=== PATIENT | male | born 1960 | race Caucasian/White ===

== ENCOUNTER 2017-04-18 09:45 | Emergency (ER) | payer OTHER ==
--- NOTE | 2017-04-18 09:58 | CPEKG ---
Heart Rate: 53 RR Interval: 1132 P-R Interval: 192 QRSD Interval: 110 QT Interval: 432 QTC Interval: 406 P [place]: 60 QRS [place]: 24 T Wave [place]: 21 EKG Severity - ABNORMAL ECG - EKG Impression: SINUS RHYTHM EKG Impression: NONSPECIFIC INTRAVENTRICULAR CONDUCTION DELAY Electronically Signed By: Bertha Wagoner 18-Apr-2017 15:26:40
[2017-04-18] MEDS ORDERED: ASPIRIN 325 MG TAB PO ONE (10:02)
[2017-04-18 10:09] LABS: % IMMATURE GRANULYOCYTES 0.2 % (0.0-1.1); ABSOLUTE IMMATURE GRANULOCYTES 0.01 10^3/uL (0.00-0.10); ADD DIFF? NO; ADD MORPH? NO; ADD SCAN? NO; ATYPICAL LYMPHOCYTE FLAG 20 (0-99); FRAGMENT RBC FLAG 0 (0-99); HEMATOCRIT 48.1 % (40.0-51.0); HEMOGLOBIN 16.8 g/dL (13.7-17.5); LEFT SHIFT FLG 0 (0-99); LIPEMIA HEMOLYSIS FLAG 90 (0-99); MEAN CELL HEMOGLOBIN 30.9 pg (27.9-34.1); MEAN CELL HEMOGLOBIN CONCENTR. 34.9 g/dL (32.4-36.7); MEAN CELL VOLUME 88.4 fL (81.5-99.8); MEAN PLATELET VOLUME 10.3 fL (8.7-11.7); PLATELET CLUMPS FLAG 20 (0-99); PLATELET COUNT 172 10^3/uL (150-400); RED BLOOD CELL COUNT 5.44 10^6/uL (4.40-6.38)
[2017-04-18] MEDS ORDERED: LIDOCAINE 2% VISCOUS 15 ML UDCUP PO ONE (10:18)
[2017-04-18] MEDS ORDERED: MAG HYDROX/AL HYDROX/SIMETH 30 ML UDCUP PO ONE (10:18)
--- NOTE | 2017-04-18 10:23 | EDPHY ---
H & P Time Seen by Provider: 04/18/17 09:52 HPI/ROS: CHIEF COMPLAINT: Chest pain HISTORY OF PRESENT ILLNESS: Patient is a 57-year-old male with a history of DVT who presents to the emergency department with left-sided chest pain since yesterday. The patient went on to our bike ride which is typical and then went to lunch. After eating lunch she developed left-sided chest pain. It does not radiate. It is not pleuritic. He had multiple episodes of belching. He felt that he was having reflux. He has had a history of H pylori in the past. Patient has had mild shortness of breath. No cough or fever. No leg pain or swelling. Patient wears compression stockings regularly. no recent travel REVIEW OF SYSTEMS: My complete review of systems is negative except as mentioned in the HPI. Past Medical/Surgical History: Includes Cardoso cyst, DVT, thrombophlebitis, H pylori Past surgical history: Knee surgery Social history: The patient smokes tobacco. He drinks daily. Smoking Status: Current some day smoker Physical Exam: Vitals noted GENERAL: Well-appearing, in no acute distress, alert. HEENT: Eyes normal to inspection, normal pharynx, no signs of dehydration. NECK: No thyromegaly, no lymphadenopathy, supple. RESPIRATORY: Clear to auscultation bilaterally, no rales, rhonchi or wheezing. CVS: Regular rate and rhythm, no rubs, murmurs, or gallops. Chest wall: No tenderness palpation. ABDOMEN: Soft, nontender, nondistended, no organomegaly. BACK: Normal to inspection, no CVA tenderness. SKIN: Normal color, no rash, warm, dry. No pallor. EXTREMITIES: No pedal edema, no calf tenderness, no Homans sign or cords, no joint swelling. NEURO/PSYCH: Alert and oriented x3, normal mood and affect, normal motor sensory exam. Constitutional: Initial Vital Signs Temperature (C) 36.4 C 04/18/17 09:47 Heart Rate 59 L 04/18/17 09:47 Respiratory Rate 20 04/18/17 09:47 Blood Pressure 120/91 H 04/18/17 09:47 O2 Sat (%) 95 04/18/17 09:47 O2 Delivery Mode Room Air O2 (L/minute) 2 Allergies/Adverse Reactions: No Known Allergies Allergy (Verified 04/18/17 09:46) Home Medications: Medication Instructions Recorded NK [No Known Home Meds] 04/18/17 Medical Decision Making - Diagnostics Imaging Results: Imaging Impressions Chest X-Ray 04/18/17 10:03 Impression: No acute pulmonary disease. ED Course/Re-evaluation: In the emergency department I discussed possible etiologies with the patient. I answered all his questions. I reviewed the patient's EKG from Dr. Jameson office. Patient was given aspirin and GI cocktail. Laboratory studies, EKG and chest x-ray were ordered. EKG shows normal sinus rhythm, normal rate, normal axis, normal intervals (QRS 110). Poor R-wave progression. There are no ST or T-wave abnormalities. Patient's laboratory studies were unremarkable. Troponin D-dimer negative. Chest x-ray: No acute disease noted. I rechecked the patient and discussed his results. He had no new complaints. 1155: I discussed the case with Dr. Jameson. He feels comfortable with patient being discharged. He will arrange close follow-up. He also requested I give the patient follow-up information with Cardiology. Patient will return with worsening symptoms. Differential Diagnosis: My differential includes but is not limited to ACS, acute ME, pulmonary embolus , dissection, aneurysm, myocarditis, pericarditis, pleurisy, pneumonia, pneumothorax, mass, malignancy - Data Points Laboratory Results: Laboratory Results 04/18/17 10:00 04/18/17 10:00 04/18/17 04/18/17 04/18/17 Unknown 10:00 10:00 WBC 4.66 10^3/uL 10^3/uL (3.80-9.50) RBC 5.44 10^6/uL 10^6/uL (4.40-6.38) Hgb 16.8 g/dL g/dL (13.7-17.5) Hct 48.1 % % (40.0-51.0) MCV 88.4 fL fL (81.5-99.8) MCH 30.9 pg pg (27.9-34.1) MCHC 34.9 g/dL g/dL (32.4-36.7) RDW 13.0 % % (11.5-15.2) Plt Count 172 10^3/uL 10^3/uL (150-400) MPV 10.3 fL fL (8.7-11.7) Neut % (Auto) 62.4 % % (39.3-74.2) Lymph % (Auto) 25.1 % % (15.0-45.0) [place] % (Auto) 8.6 % % (4.5-13.0) Eos % (Auto) 2.8 % % (0.6-7.6) Baso % (Auto) 0.9 % % (0.3-1.7) Nucleat RBC Rel Count 0.0 % % (0.0-0.2) Absolute Neuts (auto) 2.91 10^3/uL 10^3/uL (1.70-6.50) Absolute Lymphs (auto) 1.17 10^3/uL 10^3/uL (1.00-3.00) Absolute Monos (auto) 0.40 10^3/uL 10^3/uL (0.30-0.80) Absolute Eos (auto) 0.13 10^3/uL 10^3/uL (0.03-0.40) Absolute Basos (auto) 0.04 10^3/uL 10^3/uL (0.02-0.10) Absolute Nucleated RBC 0.00 10^3/uL 10^3/uL (0-0.01) Immature Gran % 0.2 % % (0.0-1.1) Immature Gran # 0.01 10^3/uL 10^3/uL (0.00-0.10) D-Dimer < 0.27 ug/mLFEU ug/mLFEU (0.00-0.50) Sodium 142 mEq/L mEq/L (134-144) Potassium 4.3 mEq/L mEq/L (3.5-5.2) Chloride 106 mEq/L mEq/L (97-110) Carbon Dioxide 22 mEq/l mEq/l (22-31) Anion Gap 14 mEq/L mEq/L (8-16) BUN 17 mg/dL mg/dL (7-23) Creatinine 1.0 mg/dL mg/dL (0.7-1.3) Estimated GFR > 60 Glucose 111 mg/dL H mg/dL (70-100) Calcium 10.3 mg/dL mg/dL (8.5-10.4) Total Bilirubin 1.2 mg/dL mg/dL (0.1-1.4) Conjugated Bilirubin 0.2 mg/dL mg/dL (0.0-0.5) Unconjugated Bilirubin 1.0 mg/dL mg/dL (0.0-1.1) AST 37 IU/L IU/L (17-59) ALT 47 IU/L IU/L (21-72) Alkaline Phosphatase 51 IU/L IU/L (38-126) Troponin I < 0.012 ng/mL ng/mL (0.000-0.034) Total Protein 8.0 g/dL g/dL (6.3-8.2) Albumin 4.7 g/dL g/dL (3.5-5.0) Lipase 49 IU/L IU/L (23-300) Medications Given: Discontinued Medications Al Hydroxide/Mg Hydroxide (Maalox Susp) 30 ml PO ONCE ONE Stop: 04/18/17 10:19 Last Admin: 04/18/17 10:43 Dose: 30 ml Aspirin (Aspirin) 324 mg PO EDNOW ONE Stop: 04/18/17 10:03 Last Admin: 04/18/17 10:07 Dose: 324 mg Lidocaine (Lidocaine 2% Viscous) 15 ml PO ONCE ONE Stop: 04/18/17 10:19 Last Admin: 04/18/17 10:43 Dose: 15 ml Departure - Departure Disposition: Home, Routine, Self-Care Clinical Impression: Chest pain Qualifiers: Chest pain type: precordial pain Qualified Code(s): R07.2 - Precordial pain Condition: Good Instructions: Chest Pain (ED) Additional Instructions: Return with increasing chest pain, shortness of breath, or any other concerns. You need close follow-up appoint with Dr. Jameson on Tuesday. You should also make a follow-up appoint with Cardiology. Referrals: Xavier Lang MD [Medical Doctor] - 2-3 days without fail Sanford Jameson MD [Primary Care Provider] - 2-3 days without fail
[2017-04-18 10:46] VITALS: PULSE 53; RESP 16
[2017-04-18 11:09] LABS: ALANINE AMINOTRANSFERASE 47 IU/L (21-72); ALBUMIN 4.7 g/dL (3.5-5.0); ALKALINE PHOSPHATASE 51 IU/L (38-126); ASPARTATE AMINOTRANSFERASE 37 IU/L (17-59); BILIRUBIN,TOTAL 1.2 mg/dL (0.1-1.4); BILIRUBIN-CONJUGATED 0.2 mg/dL (0.0-0.5); GLOMERULAR FILTRATION RATE > 60
[2017-04-18 11:13] LABS: ANION GAP 14 mEq/L (8-16); CARBON DIOXIDE 22 mEq/l (22-31); CHLORIDE 106 mEq/L (97-110); GLUCOSE 111 mg/dL (70-100); POTASSIUM 4.3 mEq/L (3.5-5.2); SODIUM 142 mEq/L (134-144); TROPONIN I < 0.012 ng/mL (0.000-0.034)
[2017-04-18 11:14] LABS: CALCIUM 10.3 mg/dL (8.5-10.4)
[2017-04-18 12:26] VITALS: BP 129/81; TEMP 97.9; O2SAT 99
== END 2017-04-18 12:26 | disposition home or self-care (01) ==
DX: R07.2 Precordial pain (principal); F17.200 Nicotine dependence, unspecified, uncomplicated

== ENCOUNTER 2017-11-09 14:33 | Emergency (ER) | payer OTHER ==
[2017-11-09 14:36] VITALS: TEMP 97.3
--- NOTE | 2017-11-09 14:46 | CPEKG ---
Heart Rate: 69 RR Interval: 870 P-R Interval: 188 QRSD Interval: 110 QT Interval: 412 QTC Interval: 442 P [place]: 71 QRS [place]: 50 T Wave [place]: 54 EKG Severity - ABNORMAL ECG - EKG Impression: SINUS RHYTHM EKG Impression: NONSPECIFIC INTRAVENTRICULAR CONDUCTION DELAY Electronically Signed By: Bertha Wagoner 09-Nov-2017 20:58:21
[2017-11-09] MEDS ORDERED: NS 1,000 ML IV ONE ×2 (15:00→15:09)
[2017-11-09] MEDS ORDERED: ASPIRIN 81 MG CHEWABLE TAB PO ONE (15:09)
--- NOTE | 2017-11-09 15:13 | EDPHY ---
H & P Time Seen by Provider: 11/09/17 14:47 HPI/ROS: CHIEF COMPLAINT: Lightheadedness HISTORY OF PRESENT ILLNESS: Patient is a 49-year-old male who presents emergency department after having episode of lightheadedness. Patient states that he went on a hard bike ride for about 2 hr earlier today. He normally rides his bike 3 to 4 times a week. This was a particularly difficult ride. He returned home was feeling well. He had something to eat. He was walking up the stairs when he began to feel lightheaded. He placed his heart rate monitor and his heart was elevated at 104. He denies palpitations. He had no chest pain. No shortness of breath. No diaphoresis. No focal weakness or numbness. No visual change. REVIEW OF SYSTEMS: My complete review of systems is negative except as mentioned in the HPI. Past Medical/Surgical History: Includes DVT Past surgical history: Noncontributory Social history: Patient does not smoke. Patient does drink alcohol. The patient is retired teacher. Smoking Status: Former smoker Physical Exam: 36.3, 148/95, 74, 19, 95% on room air GENERAL: Well-appearing, in no acute distress, alert. HEENT: Eyes normal to inspection, normal pharynx, no signs of dehydration. NECK: No thyromegaly, no lymphadenopathy, supple. RESPIRATORY: Clear to auscultation bilaterally, no rales, rhonchi or wheezing. CVS: Regular rate and rhythm, no rubs, murmurs, or gallops. ABDOMEN: Soft, nontender, nondistended, no organomegaly. BACK: Normal to inspection, no CVA tenderness. SKIN: Normal color, no rash, warm, dry. No pallor. EXTREMITIES: No pedal edema, no calf tenderness, no Homans sign or cords, no joint swelling. NEURO/PSYCH: Higher functions: Alert and Oriented x3. Normal speech and cognition. Normal mood and affect. Cranial nerves: Normal as tested. Cerebellar: Normal as tested. Good finger to nose, good [id number], normal gait. Peripheral exam: Normal motor exam. Normal sensation. Normal reflexes. Constitutional: Initial Vital Signs Temperature (C) 36.3 C 11/09/17 14:34 Heart Rate 74 11/09/17 14:34 Respiratory Rate 19 11/09/17 14:34 Blood Pressure 148/95 H 11/09/17 14:34 O2 Sat (%) 95 11/09/17 14:34 O2 Delivery Mode Room Air Allergies/Adverse Reactions: No Known Allergies Allergy (Verified 11/09/17 14:34) Home Medications: Medication Instructions Recorded NK [No Known Home Meds] 04/18/17 Medical Decision Making - Diagnostics Imaging Results: Imaging Impressions Chest X-Ray 11/09/17 15:10 Impression: Stable negative chest.. ED Course/Re-evaluation: In the emergency department I met the patient on arrival. I discussed possible etiologies. I answered all his questions. IV was placed. Laboratory studies, EKG and chest x-ray were ordered. The patient was given aspirin 324 mg orally. EKG shows normal sinus rhythm, normal rate, normal axis, nonspecific interventricular conduction delay. There are no ST or T-wave abnormalities. I compared this EKG with his previous EKG from 04/18/2017. It is unchanged. CBC is unremarkable. D-dimer is negative. Chemistry, troponin and TSH are pending. Chest x-ray: Please refer the dictated report. No acute disease noted. 15 50: I rechecked the patient. He had no complaints at this time. I discussed results thus far. Chemistry panel was noted for a mildly low CO2. TSH was normal 1.4. Troponin is negative. I reviewed the patient's rhythm strip. He had no significant abnormality noted. I discussed the results with the patient. On recheck he was feeling well. He had no further episodes. He is given warnings prior to leaving. He will follow up with Cardiology. Differential Diagnosis: My differential includes but is not limited to palpitations, SVT, ventricular tachycardia, dysrhythmia, electrolyte abnormality, sugar abnormality, thyroid disease, CVA, PE - Data Points Laboratory Results: Laboratory Results 11/09/17 15:00 11/09/17 15:00 11/09/17 11/09/17 11/09/17 15:00 15:00 15:00 WBC 7.81 10^3/uL 10^3/uL (3.80-9.50) RBC 5.09 10^6/uL 10^6/uL (4.40-6.38) Hgb 15.8 g/dL g/dL (13.7-17.5) Hct 44.2 % % (40.0-51.0) MCV 86.8 fL fL (81.5-99.8) MCH 31.0 pg pg (27.9-34.1) MCHC 35.7 g/dL g/dL (32.4-36.7) RDW 12.7 % % (11.5-15.2) Plt Count 208 10^3/uL 10^3/uL (150-400) MPV 10.2 fL fL (8.7-11.7) Neut % (Auto) 67.8 % % (39.3-74.2) Lymph % (Auto) 24.6 % % (15.0-45.0) [place] % (Auto) 5.8 % % (4.5-13.0) Eos % (Auto) 1.0 % % (0.6-7.6) Baso % (Auto) 0.5 % % (0.3-1.7) Nucleat RBC Rel Count 0.0 % % (0.0-0.2) Absolute Neuts (auto) 5.30 10^3/uL 10^3/uL (1.70-6.50) Absolute Lymphs (auto) 1.92 10^3/uL 10^3/uL (1.00-3.00) Absolute Monos (auto) 0.45 10^3/uL 10^3/uL (0.30-0.80) Absolute Eos (auto) 0.08 10^3/uL 10^3/uL (0.03-0.40) Absolute Basos (auto) 0.04 10^3/uL 10^3/uL (0.02-0.10) Absolute Nucleated RBC 0.00 10^3/uL 10^3/uL (0-0.01) Immature Gran % 0.3 % % (0.0-1.1) Immature Gran # 0.02 10^3/uL 10^3/uL (0.00-0.10) D-Dimer < 0.27 ug/mLFEU ug/mLFEU (0.00-0.50) Sodium 142 mEq/L mEq/L (135-145) Potassium 4.3 mEq/L mEq/L (3.5-5.2) Chloride 107 mEq/L mEq/L (97-110) Carbon Dioxide 21 mEq/l L D mEq/l (22-31) Anion Gap 14 mEq/L mEq/L (8-16) BUN 25 mg/dL H mg/dL (7-23) Creatinine 0.9 mg/dL mg/dL (0.7-1.3) Estimated GFR > 60 Glucose 98 mg/dL mg/dL (70-100) Calcium 9.8 mg/dL mg/dL (8.5-10.4) Troponin I < 0.012 ng/mL ng/mL (0.000-0.034) TSH 1.410 uIU/mL uIU/mL (0.465-4.680) Medications Given: Discontinued Medications Aspirin (Aspirin) 324 mg PO EDNOW ONE Stop: 11/09/17 15:10 Last Admin: 11/09/17 15:17 Dose: 324 mg Sodium Chloride (Ns) 1,000 mls @ 0 mls/hr IV ONCE ONE PRN Reason: Wide Open Stop: 11/09/17 15:01 Last Admin: 11/09/17 15:03 Dose: 1,000 mls Departure - Departure Disposition: Home, Routine, Self-Care Clinical Impression: Lightheaded Condition: Good Instructions: Lightheadedness (ED) Additional Instructions: Return with increasing lightheaded, dizziness, chest pain, shortness of breath or any other concerns. Referrals: Sanford Jameson MD [Primary Care Provider] - 2-3 days, call for appt. [facility] [Provider Group] - 5-7 days, call for appt.
[2017-11-09 15:18] LABS: PLATELET COUNT 208 10^3/uL (150-400)
[2017-11-09 17:19] VITALS: BP 114/74; PULSE 63; RESP 16; O2SAT 94
== END 2017-11-09 17:15 | disposition home or self-care (01) ==
DX: R42 Dizziness and giddiness (principal); Z87.891 Personal history of nicotine dependence

== ENCOUNTER 2017-12-03 21:25 | Emergency (ER) | payer OTHER ==
--- NOTE | 2017-12-03 21:51 | CPEKG ---
Heart Rate: 72 RR Interval: 833 P-R Interval: 188 QRSD Interval: 120 QT Interval: 412 QTC Interval: 451 P [place]: 48 QRS [place]: 29 T Wave [place]: 39 EKG Severity - ABNORMAL ECG - EKG Impression: SINUS RHYTHM EKG Impression: NONSPECIFIC INTRAVENTRICULAR CONDUCTION DELAY Electronically Signed By: En Thompson 04-Dec-2017 00:58:32
[2017-12-03 21:58] LABS: PLATELET COUNT 245 10^3/uL (150-400)
--- NOTE | 2017-12-03 22:08 | EDPHY ---
H & P Stated Complaint: c/o L sided cp/sob since approx 0400, R knee repl approx 3 weeks ago Time Seen by Provider: 12/03/17 21:56 HPI/ROS: Chief Complaint: Chest pain HPI: 49-year-old male who is 2 weeks status post right knee replacement started having left sided chest pain and back pain, worse with lying flat and worse with taking deep breath. He has a history of a DVT in the past. He was on Lovenox for 2 weeks after his knee replacement but discontinued several days ago. Pain is also worse with cough which is nonproductive. It is been persistent since 4 o'clock this morning. No nausea or vomiting. No leg pain or swelling. ROS: 10 point Review of Systems is negative except as noted in the HPI. PMH: DVT, right knee replacement Social History: Former smoking, occasional alcohol, no recreational drug use Family History: non-contributory Physical Exam: Gen: Awake, Alert, No Distress HEENT: Nose: no rhinorrhea Eyes: PERRLA, EOMI Mouth: Moist mucosa Neck: Supple, no JVD Chest: nontender, lungs clear to auscultation Heart: S1, S2 normal, no murmur Abd: Soft, non-tender, no guarding Back: no CVA tenderness, no midline tenderness Ext: no edema, non-tender Skin: no rash Neuro: CN II-XII intact, Sensation grossly intact, Strength 5/5 in bilateral upper and lower extremities - Medical/Surgical History Hx Asthma: No Hx Chronic Respiratory Disease: No Hx Diabetes: No Hx Cardiac Disease: No Hx Renal Disease: No Hx Cirrhosis: No Hx Alcoholism: No Hx HIV/AIDS: No Hx Splenectomy or Spleen Trauma: No Other PMH: dvt, thrombophlebitis, R knee replacement, 2 lipomas removed - Social History Smoking Status: Former smoker Constitutional: Initial Vital Signs Temperature (C) 36.9 C 12/03/17 21:35 Heart Rate 82 12/03/17 21:35 Respiratory Rate 16 12/03/17 21:35 Blood Pressure 124/74 H 12/03/17 21:35 O2 Sat (%) 93 12/03/17 21:35 O2 Delivery Mode Room Air Allergies/Adverse Reactions: No Known Allergies Allergy (Verified 12/03/17 21:40) Home Medications: Medication Instructions Recorded Rivaroxaban [Xarelto 15mg (*)] 15 mg PO BID #20 tab 12/03/17 oxyCODONE CR 12/03/17 Medical Decision Making - Diagnostics EKG Interpretation: ECG time 9:49 p.m., sinus rhythm with a rate of 72, normal axis, normal intervals, no acute ST or T-wave changes. Impression: Normal ECG. Imaging Results: Imaging Impressions Chest/Thorax CTA 12/03/17 22:14 Impression: Left lower lobe pulmonary embolus, with associated atelectasis and small pleural effusion. Results called to Dr. En Thompson at 11:00 PM at the time of the interpretation. Imaging: Discussed imaging studies w/ sports leadership instructor Radiologist ED Course/Re-evaluation: CT PA positive for PE. Patient has no right heart strain pattern on his ECG. Oxygen saturations are noted for percent on room air. He is not tachycardic. Troponin is normal. The patient is comfortable starting on rivaroxaban and following up with primary care physician. Will start him on the initial 15 mg twice a day for 10 days. Will have his primary care physician transition him to the 20 mg once a day. He has close follow-up available to him. He was given initial dose of rivaroxaban here. Will get a prescription filled tomorrow. He does return for any worsening of symptoms or for any complications of receiving his anticoagulation. - Data Points Laboratory Results: Laboratory Results 12/03/17 21:47 12/03/17 21:47 12/03/17 12/03/17 12/03/17 22:45 21:47 21:47 WBC 9.27 10^3/uL 10^3/uL (3.80-9.50) RBC 4.22 10^6/uL L 10^6/uL (4.40-6.38) Hgb 12.6 g/dL L g/dL (13.7-17.5) Hct 37.3 % L % (40.0-51.0) MCV 88.4 fL fL (81.5-99.8) MCH 29.9 pg pg (27.9-34.1) MCHC 33.8 g/dL g/dL (32.4-36.7) RDW 13.6 % % (11.5-15.2) Plt Count 245 10^3/uL 10^3/uL (150-400) MPV 9.6 fL fL (8.7-11.7) Neut % (Auto) 74.0 % % (39.3-74.2) Lymph % (Auto) 12.8 % L % (15.0-45.0) [place] % (Auto) 11.1 % % (4.5-13.0) Eos % (Auto) 1.4 % % (0.6-7.6) Baso % (Auto) 0.3 % % (0.3-1.7) Nucleat RBC Rel Count 0.0 % % (0.0-0.2) Absolute Neuts (auto) 6.85 10^3/uL H 10^3/uL (1.70-6.50) Absolute Lymphs (auto) 1.19 10^3/uL 10^3/uL (1.00-3.00) Absolute Monos (auto) 1.03 10^3/uL H 10^3/uL (0.30-0.80) Absolute Eos (auto) 0.13 10^3/uL 10^3/uL (0.03-0.40) Absolute Basos (auto) 0.03 10^3/uL 10^3/uL (0.02-0.10) Absolute Nucleated RBC 0.00 10^3/uL 10^3/uL (0-0.01) Immature Gran % 0.4 % % (0.0-1.1) Immature Gran # 0.04 10^3/uL 10^3/uL (0.00-0.10) Sodium 140 mEq/L mEq/L (135-145) Potassium 4.2 mEq/L mEq/L (3.5-5.2) Chloride 106 mEq/L mEq/L (97-110) Carbon Dioxide 22 mEq/l mEq/l (22-31) Anion Gap 12 mEq/L mEq/L (8-16) BUN 17 mg/dL mg/dL (7-23) Creatinine 0.9 mg/dL mg/dL (0.7-1.3) Estimated GFR > 60 Glucose 111 mg/dL H mg/dL (70-100) Calcium 9.5 mg/dL mg/dL (8.5-10.4) Troponin I < 0.012 ng/mL ng/mL (0.000-0.034) Urine Color YELLOW Urine Appearance CLEAR Urine pH 5.0 (5.0-7.5) Ur Specific [place] 1.021 (1.002-1.030) Urine Protein NEGATIVE (NEGATIVE) Urine Ketones NEGATIVE (NEGATIVE) Urine Blood NEGATIVE (NEGATIVE) Urine Nitrate NEGATIVE (NEGATIVE) Urine Bilirubin NEGATIVE (NEGATIVE) Urine Urobilinogen NEGATIVE EU EU (0.2-1.0) Ur Leukocyte Esterase NEGATIVE (NEGATIVE) Urine Glucose NEGATIVE (NEGATIVE) Medications Given: Rivaroxaban (Xarelto) 15 mg PO EDNOW ONE Stop: 12/04/17 23:27 Last Admin: 12/03/17 23:41 Dose: 15 mg Departure - Departure Disposition: Home, Routine, Self-Care Clinical Impression: Pulmonary embolus Condition: Fair Instructions: Pulmonary Embolism (DC) Additional Instructions: Make sure to take your rivaroxaban twice a day starting tomorrow. Return to the emergency department for increasing chest pain, shortness of breath, lightheadedness, fainting, or any other concerns. Follow up with your primary care physician in 3-4 days without fail. Referrals: Sanford Jameson MD [Primary Care Provider] - As per Instructions Prescriptions: Rivaroxaban [Xarelto 15mg (*)] 15 mg PO BID #20 tab
[2017-12-03] MEDS ORDERED: IOPAMIDOL (ISOVUE 370) 100 ML BTL IV ONE (22:20)
[2017-12-03] MEDS ORDERED: RIVAROXABAN 15 MG TAB ONE (23:37)
[2017-12-03] MEDS: RIVAROXABAN 15 MG TAB PO ONE (23:41)
[2017-12-03 23:45] VITALS: BP 134/79
== END 2017-12-03 23:57 | disposition home or self-care (01) ==
LOC: UNDOADMOB 23:08
DX: I26.99 Other pulmonary embolism without acute cor pulmonale (principal); Z87.891 Personal history of nicotine dependence
CPT/HCPCS: Q9967

== ENCOUNTER → 2017-12-13 | Outpatient (CLI) | payer OTHER | LOC: FIMAGING 14:58 | PROVIDERS: ATTEND Internal Medicine | DX: I82.812 Embolism and thrombosis of superficial veins of left lower extremity (principal) ==